=== PATIENT | female | born 1960 | race Caucasian/White ===

== ENCOUNTER → 2017-08-04 | Outpatient (CLI) | payer BC | LOC: MAMMO 08:04 | PROVIDERS: ATTEND Obstetrics & Gynecology | DX: Z12.31 Encounter for screening mammogram for malignant neoplasm of breast (principal) | CPT/HCPCS: G0202 ==

== ENCOUNTER → 2017-08-11 | Outpatient (CLI) | payer BC ==
--- NOTE | 2017-08-11 09:17 | Diagnostic Imaging Report ---
PROCEDURE: US THYROID COMPARISON: [facility], [place], US THYROID, 01/30/2016, 9:01. INDICATIONS:Single Nontoxic Thyroid Nodule TECHNIQUE: Kirkpatrick scale and color Doppler ultrasound thyroid FINDINGS: Right: 5.1 x 1.2 x 1.6 cm Left: 4.1 x 1 x 1.7 cm. Isthmus thickness: 0.3 cm Nodules: Right: 1. Right superior lateral 0.7 x 0.4 x 0.6 cm: Solid, anechoic, wider than tall, smooth margin without echogenic foci (2 points) 2. Right mid 1.2 x 0.9 x 1 cm: Predominantly cystic, anechoic, wider than tall, ill-defined margins with peripheral calcification (2 points) 3. Right lateral 0.4 x 0.2 x 0.4 cm. Left: 1. Left lateral 3 mm cyst 2. Left medial 3 mm cyst CONCLUSION: 1. Stable benign-appearing thyroid nodules without indication for FNA. 2. Per ACR Ti-Rads guidelines additional followup is not warranted. Dictated by: Reuben Mckeon M.D. on 08/11/2017 at 9:26 Electronically approved by: Reuben Mckeon M.D. on 08/11/2017 at 9:26
== END ==
LOC: US 08:02
PROVIDERS: ATTEND Internal Medicine
DX: E04.1 Nontoxic single thyroid nodule (principal)
CPT/HCPCS: 76536

== ENCOUNTER → 2018-08-11 | Outpatient (CLI) | payer BC | LOC: MAMMO 08:16 | PROVIDERS: ATTEND Obstetrics & Gynecology | DX: Z12.31 Encounter for screening mammogram for malignant neoplasm of breast (principal) | CPT/HCPCS: 77067 ==

== ENCOUNTER → 2019-03-24 | Outpatient (CLI) | payer BC ==
--- NOTE | 2019-03-24 12:43 | Diagnostic Imaging Report ---
Exam: PA and lateral chest radiograph Clinical history: Pneumonia Findings: There is no evidence of pulmonary consolidation, pleural effusion, or pneumothorax. Both lungs are hyperinflated most consistent with emphysematous changes. The cardiac size is within normal limits. The regional osseous structures are unremarkable. Impression: 1. No radiographic evidence of acute cardiorespiratory disease. 2. Bilateral emphysematous changes of the lung. Signed by: Dr. Efra Perez MD on 03/24/2019 12:40 PM
== END ==
LOC: RAD 11:33
PROVIDERS: ATTEND Internal Medicine
DX: R06.02 Shortness of breath (principal)
CPT/HCPCS: 71046